=== PATIENT | female | born 1980 | race Caucasian/White ===

== ENCOUNTER 2021-11-05 08:30 | Outpatient (RCR) | payer OTHER, SELFPAY ==
--- NOTE | 2021-10-16 17:38 | PC.ADMIT ---
Addmission Note: 41 year old women self referred to PHP due to increased depression, increased anxiety and worsening PTSD. Patient has a history of Alcohol abuse, which she denies. Patient was recently treated for alcohol abuse at [facility] from 09/26/2021 to 10/09/2021. Patient has a distance history of substance abuse with Marajuana and Ectasy which she reports she used each only once around the ages of 16 and 17. Per patient recent trigger to her PTSD is the anniversary of the of her father by suicide. Patient reports trouble going to sleep and staying asleep. She reports medications for sleep help some. All medications verified with patient and pharmacy. Patient started today on Risperdone twice daily. Medication teaching done with patient including medication, dose, time, side effects with good understanding. Safety Plan emailed to patient with her permission. Patient denies SI and HI. Patient reports she feels safe and was active in groups today. Patient denies any Allergies.
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
--- NOTE | 2021-10-19 14:56 | PC.NURSE ---
Case opened in treatment team
--- NOTE | 2021-10-20 14:48 | P.PNPSP_ITS ---
Subjective Subjective Date of Service: 10/20/21 Reason For Visit: Depression, Anxiety, PTSD, Alcohol Use D/o Guardianship: No Medical Problems Affecting Mental Status: No Interim History: Sasha reports feeling slightly less anxious since starting program. Reports ?I am not as emotional, I feel little improvement ?. Continues with dysphoric mood, although reports some improvement. Taking Vistaril in the morning and in evening with positive affect. Taking risperidone 0.5 in the morning and evening, reports no side effects. Continuing with all other medications as prescribed. she is finding the group format of PHP helpful. Medication Compliance: Yes Side effects from medications: No Attending Groups: Yes Review of Systems Acute medical concerns: No Medical Review of Systems: unchanged Review of Systems Review of Systems Yes all other systems are reviewed and are negative Constitutional: Reports as per HPI and Reports no additional constitutional complaints Mental Status Exam Mental Status Exam Narrative: Well-developed, well-nourished female, in NAD. No evidence of any type alcohol intoxication or withdrawals noted. No involuntary movements noted, motor activity calm, posture within normal limits. Ambulation not observed. Client appropriately groomed and dressed. No SI, HI, AH, VH. No safety concern at this time. Patient Appearance: Well Grooomed and Appropriate Patient Orientation: Person, Place, Time and Situation Level of Consciousness: Awake, Appropriate and Alert Patient Behavior: Appropriate, Cooperative and Good Eye Contact Mood Description: Calm, Appropriate and Depressed Affect Description: Appropriate, Depressed and Anxious Patient Cognition Impaired: No Ability to Follow Directions: Excellent Speech Pattern: Clear, Appropriate, Spontaneous Speech and Coherent Memory Description: Intact Hallucinations: None Delusions: Not Present Thought Process: Intact, Goal Oriented and Linear Thought Content: positive for Intact and positive for Obsessional Thoughts (Reports intrusive thoughts at times, flashbacks related to PTSD.) Depressive Symptoms: Increased Anxiety, Loss of Int. in Activity, Feelings of G uilt and Unhappiness Judgement: Fair Assessment & Plan Assessment & Plan (1) JOANN (generalized anxiety disorder): Status: Acute Code(s): F41.1 - Generalized anxiety disorder Assessment and Plan: Client reports level of anxiety starting to improve. States that she does not feel as emotional, and feels that her level of anxiety is going down. Utilizing p.r.n. hydroxyzine as prescribed for anxiety symptoms, with positive affect. Is also finding group therapy helpful, listening to other people's perspectives and how they are dealing with similar problems. (2) MDD (major depressive disorder), recurrent severe, without psychosis: Status: Acute Code(s): F33.2 - Major depressive disorder, recurrent severe without psychotic features Assessment and Plan: Client continues with symptoms of depression, although she feels that they are starting to subside slowly. Continues with antidepressants as prescribed. Risperidone 0.5 b.i.d. has been added, client has been taking it as prescribed. She reports that she has not yet noticed an improvement as she has only been taking it for a few days at this point. She plans to continue utilizing it. Does not express any suicidal ideation at this time, no safety concern at this time. (3) Alcohol use disorder, moderate, dependence: Status: Acute Code(s): F10.20 - Alcohol dependence, uncomplicated Assessment and Plan: Client was more receptive to discuss alcohol use during this encounter. She reports that she went to a meeting of alcoholics anonymous last evening. She states that it was a speaker reading with approximately 30 people. She states that she found it very and powering. She plans to continue going to meetings. Phone number was given to [place] [facility]. Confidential 12 step recovery meetings for healthcare professionals was discussed, and client may consider these in the future. She continues to abstain from alcohol. (4) PTSD (post-traumatic stress disorder): Status: Acute Code(s): F43.10 - Post-traumatic stress disorder, unspecified Assessment and Plan: Client reports no notable improvement in PTSD symptoms of intrusive thoughts and flashbacks since starting Risperdal. She will continue to take as prescribed, as it has only been 4 days. Assessment and Plan: 1. Continue with current medication regimen as prescribed. No refills needed at this time. 2. Follow-up as per protocol. Patient educated on: diagnosis, medication risk/benefits, substance abuse and therapeutic strategies Informed Consent: understands Reason for contiued partial hosp. stay Substantial Risk for: harm to self, inability to function, rapid decompensation and med/psych decompensation Certification I certify that partial hospital treatment is medically necessary due to the symptoms and problems resulting from the patient's mental illness and the failure to treat the patient at the partial hospital level of care would likely result in the patient requiring inpatient psychiatric care which could not be prevented at a less intensive level of care. I spent minutes with the patient and/or on the patient floor today, greater than?50% of which was spent counseling/coordinating care. Discharge Plan Discharge Attending provider: Rajiv Adame Primary Care Provider: Declan Rodriguez Medications: New risperidone [Risperdal] 0.5 mg tablet 0.5 mg PO BID 7 Days Qty: 14 RF: 0 folic acid 1 mg tablet 1 mg PO DAILY Qty: 30 RF: 0 thiamine HCl (vitamin B1) [Vitamin B-1] 100 mg tablet 100 mg PO DAILY Qty: 30 RF: 0 hydroxyzine HCl 50 mg tablet 50 mg PO QID PRN (Reason: anxiety) Qty: 56 RF: 0 No Action mirtazapine 15 mg tablet 15 mg PO BEDTIME RF: 0 bupropion HCl 300 mg tablet extended release 24 hr 300 mg PO DAILY RF: 0 melatonin 5 mg Tablet 5 mg PO BEDTIME PRN (Reason: Insomnia) RF: 0 Referrals: Declan Rodriguez MD [Primary Care Provider] - 1 Week Telehealth Telehealth Location of provider rendering services: practice address Location of patient: address on file Patient Identification confirmed using: Name, : Yes Telehealth method: video Patient verbally consented to treatment: Yes Patient verbally consented to billing insurance company: Yes Patient informed of any privacy concerns related to visit: Yes Time spent with patient (mins): 15
--- NOTE | 2021-10-29 14:56 | HO.PHPPROGNO ---
Subjective Subjective Date of Service: 10/29/21 Reason For Visit: Depression, Anxiety, PTSD, Alcohol Use D/o Guardianship: No Medical Problems Affecting Mental Status: No Interim History: Sasha reports she is stable, smooth sailing . Denies any thoughts of SI, or harm to others. No safety concern. Reports current medication regimen is working well, wishes to stay with current meds and current doses at this time. States she wishes to return to work, but thinks a set schedule would help her in managing her anxiety and depression. Medication Compliance: Yes Side effects from medications: No Attending Groups: Yes Review of Systems Acute medical concerns: No Medical Review of Systems: unchanged Review of Systems Review of Systems Yes all other systems are reviewed and are negative Constitutional: Reports no additional constitutional complaints Mental Status Exam Mental Status Exam Narrative: Well-developed, well-nourished female, in NAD. No involuntary movements noted, motor activity calm, posture within normal limits. Ambulation not observed. Patient Appearance: Well Grooomed and Appropriate Patient Orientation: Person, Place, Time and Situation Level of Consciousness: Awake, Appropriate and Alert Patient Behavior: Appropriate, Cooperative and Good Eye Contact Mood Description: Calm and Appropriate Affect Description: Appropriate and Cheerful (superficially bright.) Patient Cognition Impaired: No Ability to Follow Directions: Excellent Speech Pattern: Clear, Appropriate, Spontaneous Speech and Coherent Memory Description: Intact Hallucinations: None Delusions: Not Present Thought Process: Intact, Goal Oriented and Linear Thought Content: positive for Intact Depressive Symptoms: Increased Anxiety, Loss of Int. in Activity and Feelings of Guilt Judgement: Fair Assessment & Plan Assessment & Plan (1) MDD (major depressive disorder), recurrent severe, without psychosis: Status: Acute Code(s): F33.2 - Major depressive disorder, recurrent severe without psychotic features Assessment and Plan: Client describes her mood as stable, smooth sailing . States that she does not feel ?to depressed, or to anxious ?. She states that she feels bad when she hears all the other clients as she cannot relate to them, as she is feeling well. She states that the medications are working well. States that she feels ready to return to work, although she believes a set schedule would be appropriate in order to help her manage symptoms of depression and anxiety. No thoughts of harm to self or others, no safety concern at this time. (2) JOANN (generalized anxiety disorder): Status: Acute Code(s): F41.1 - Generalized anxiety disorder Assessment and Plan: Client reports that she is not feeling ?to anxious ?. She states that she is utilizing hydroxyzine with positive affect. She states that she is taking 50 mg in the morning and 100 mg at night. She states that she had made this medication change by herself, as she finds doing this is working better for her than having it 4 times a day p.r.n. at 50 mg. (3) PTSD (post-traumatic stress disorder): Status: Acute Code(s): F43.10 - Post-traumatic stress disorder, unspecified Assessment and Plan: Client continues with risperidone 0.5 b.i.d., in order to help manage PTSD symptoms of intrusive thoughts as well as an adjunct to her antidepressant. States that she has not really felt any symptoms of PTSD lately, as ?they only flare up when I feel offended ?. She states that during those times, she takes a step back and then shuts down. She reports she has not really been doing that while she is in this program. No nightmares, flashbacks, hypervigilance reported. (4) Alcohol use disorder, moderate, dependence: Status: Acute Code(s): F10.20 - Alcohol dependence, uncomplicated Assessment and Plan: Client reports that she does not feel she has an alcohol use disorder at this time. She states she has not been drinking while in the program. She states that a friend that was her roommate while she was in rehab has relapsed, and that she feels sorry for the person. She states that she is not finding the need to drink, and that she was only drinking previously due to a crisis situation. Assessment and Plan: 1. Continue current medication regimen as prescribed. 2. Thirty day refill for risperidone 0.5 b.i.d. sent. Refill for melatonin 5 mg at bedtime, 30 day supply sent. 3. Follow-up as per protocol. Patient educated on: diagnosis, medication risk/benefits, substance abuse and therapeutic strategies Informed Consent: further education needed Reason for contiued partial hosp. stay Substantial Risk for: inability to function and med/psych decompensation Certification I certify that partial hospital treatment is medically necessary due to the symptoms and problems resulting from the patient's mental illness and the failure to treat the patient at the partial hospital level of care would likely result in the patient requiring inpatient psychiatric care which could not be prevented at a less intensive level of care. I spent minutes with the patient and/or on the patient floor today, greater than?50% of which was spent counseling/coordinating care. Discharge Plan Discharge Attending provider: Rajiv Adame Primary Care Provider: Declan Rodriguez Medications: New folic acid 1 mg tablet 1 mg PO DAILY Qty: 30 RF: 0 thiamine HCl (vitamin B1) [Vitamin B-1] 100 mg tablet 100 mg PO DAILY Qty: 30 RF: 0 hydroxyzine HCl 50 mg tablet 50 mg PO QID PRN (Reason: anxiety) Qty: 56 RF: 0 risperidone [Risperdal] 0.5 mg tablet 0.5 mg PO BID 30 Days Qty: 60 RF: 0 melatonin 5 mg capsule 5 mg PO .daily at bedtime PRN (Reason: sleep) 30 Days Qty: 30 RF: 0 Discontinued melatonin 5 mg Tablet 5 mg PO BEDTIME PRN (Reason: Insomnia) RF: 0 No Action mirtazapine 15 mg tablet 15 mg PO BEDTIME RF: 0 bupropion HCl 300 mg tablet extended release 24 hr 300 mg PO DAILY RF: 0 Referrals: Declan Rodriguez MD [Primary Care Provider] - 1 Week Telehealth Telehealth Location of provider rendering services: practice address Location of patient: address on file Patient Identification confirmed using: Name, : Yes Telehealth method: video Patient verbally consented to treatment: Yes Patient verbally consented to billing insurance company: Yes Patient informed of any privacy concerns related to visit: Yes Time spent with patient (mins): 20
--- NOTE | 2021-11-02 15:50 | P.PNPSP_ITS ---
Subjective Subjective Date of Service: 11/02/21 Reason For Visit: Depression, Anxiety, PTSD, Alcohol Use D/o Guardianship: No Medical Problems Affecting Mental Status: No Interim History: Client reports that she is ?doing well ?today. She reports that she feels her mood is much more stable now than when she entered program. States her last day is expected to be either Tuesday or of this week. Denies any thoughts of harm to self or others. Reports that she feels stable for discharge at this time. Medication Compliance: Yes Side effects from medications: No Attending Groups: Yes Review of Systems Acute medical concerns: No Medical Review of Systems: unchanged Mental Status Exam Mental Status Exam Narrative: Well-developed, well-nourished female, in NAD. No involuntary movem ents noted, motor activity calm, posture within normal limits. Ambulation not observed. Patient Appearance: Well Grooomed and Appropriate Patient Orientation: Person, Place, Time and Situation Level of Consciousness: Awake, Appropriate and Alert Patient Behavior: Appropriate, Cooperative and Good Eye Contact Mood Description: Calm, Appropriate and Relaxed Affect Description: Calm and Appropriate Patient Cognition Impaired: No Ability to Follow Directions: Excellent Speech Pattern: Clear, Appropriate, Spontaneous Speech and Coherent Memory Description: Intact Hallucinations: None Delusions: Not Present Thought Process: Intact, Goal Oriented and Linear Thought Content: positive for Intact, positive for Goal Oriented, positive for Linear and positive for Logical Depressive Symptoms: Increased Anxiety, Loss of Int. in Activity, Isolating- Friends/Family and Feelings of Guilt Judgement: Good Assessment & Plan Assessment & Plan (1) MDD (major depressive disorder), recurrent severe, without psychosis: Status: Acute Code(s): F33.2 - Major depressive disorder, recurrent severe without psychotic features Assessment and Plan: Client reports feeling much improved since beginning PHP. Reports decrease in depressive symptoms, denies any type of thoughts of harm to self or others, no safety concern at this time. She reports she feels stable, ready for discharge. States her last day is expected to be either Tuesday or of this week. Discussed returning to work, she states that she is concerned about the work load, as well as her level of anxiety and depressive symptoms, as she does not w ant to feel overwhelmed. She plans to discuss this further with her primary care physician next week. She states she does not need any refills of medications at this time. (2) PTSD (post-traumatic stress disorder): Status: Acute Code(s): F43.10 - Post-traumatic stress disorder, unspecified (3) JOANN (generalized anxiety disorder): Status: Acute Code(s): F41.1 - Generalized anxiety disorder Assessment and Plan: 1. Patient appears stable for discharge, as is expected this week. 2. Patient to follow-up with outpatient providers going forward. Patient educated on: diagnosis, medication risk/benefits, substance abuse and therapeutic strategies Informed Consent: understands Reason for contiued partial hosp. stay Substantial Risk for: stable for discharge Certification I certify that partial hospital treatment is medically necessary due to the symptoms and problems resulting from the patient's mental illness and the failure to treat the patient at the partial hospital level of care would likely result in the patient requiring inpatient psychiatric care which could not be prevented at a less intensive level of care. I spent minutes with the patient and/or on the patient floor today, greater than?50% of which was spent counseling/coordinating care. Discharge Plan Discharge Attending provider: Rajiv Adame Primary Care Provider: Declan Rodriguez Medications: New folic acid 1 mg tablet 1 mg PO DAILY Qty: 30 RF: 0 thiamine HCl (vitamin B1) [Vitamin B-1] 100 mg tablet 100 mg PO DAILY Qty: 30 RF: 0 hydroxyzine HCl 50 mg tablet 50 mg PO QID PRN (Reason: anxiety) Qty: 56 RF: 0 risperidone [Risperdal] 0.5 mg tablet 0.5 mg PO BID 30 Days Qty: 60 RF: 0 melatonin 5 mg capsule 5 mg PO .daily at bedtime PRN (Reason: sleep) 30 Days Qty: 30 RF: 0 Discontinued melatonin 5 mg Tablet 5 mg PO BEDTIME PRN (Reason: Insomnia) RF: 0 No Action mirtazapine 15 mg tablet 15 mg PO BEDTIME RF: 0 bupropion HCl 300 mg tablet extended release 24 hr 300 mg PO DAILY RF: 0 Referrals: Declan Rodriguez MD [Primary Care Provider] - 1 Week Stand Alone Forms: Patient Portal Discharge page Telehealth Telehealth Location of provider rendering services: practice address Location of patient: address on file Patient Identification confirmed using: Name, : Yes Telehealth method: video Patient verbally consented to treatment: Yes Patient verbally consented to billing insurance company: Yes Patient informed of any privacy concerns related to visit: Yes Time spent with patient (mins): 15
== END 2021-11-06 07:09 | disposition home or self-care (01) ==
LOC: HO.PHPA 08:30
PROVIDERS: PCP Internal Medicine; Visit Provider Psychiatry & Neurology Psychiatry
DX: F33.2 Major depressive disorder, recurrent severe without psychotic features (principal); F43.10 Post-traumatic stress disorder, unspecified; F41.1 Generalized anxiety disorder; F10.20 Alcohol dependence, uncomplicated
CPT/HCPCS: 90791; 90853

== ENCOUNTER 2022-06-01 18:24 | Inpatient (IN) | payer OTHER, MEDICAID, SELFPAY ==
[2022-06-01 18:40] VITALS: BP 123/78; PULSE 102; RESP 18; TEMP 36.4; O2SAT 98
[2022-06-01 19:40] VITALS: BMI 23.2
[2022-06-01] MEDS: Nicotine 14 MG PATCH.TD24 TRANSDERMA (22:26)
[2022-06-01] MEDS: Melatonin 3 MG TABLET 9 MG PO (22:27)
[2022-06-01] MEDS: Nicotine Polacrilex 2 MG GUM BUCCAL (22:27)
[2022-06-01] MEDS: hydrOXYzine HCL 50 MG TABLET PO (22:27)
--- NOTE | 2022-06-02 00:18 | PC.NURSE ---
Tonya asked this nurse not to wake her during the night to do the CIWA exam. Score at 1999 was a 1.
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
[2022-06-02 06:00] VITALS: BP 111/77; PULSE 95; RESP 18; TEMP 36.3; O2SAT 100
[2022-06-02] MEDS: Pyridoxine HCl (Vitamin B6) 50 MG TABLET 25 MG PO (08:43)
[2022-06-02] MEDS: Thiamine HCL 100 MG TABLET 50 MG PO (08:44)
[2022-06-02] MEDS: buPROPion HCl XL 150 MG TAB.ER.24H PO (08:44)
[2022-06-02] MEDS: Folic Acid 1 MG TABLET PO (08:44)
[2022-06-02] MEDS: Nicotine 14 MG PATCH.TD24 TRANSDERMA (08:45)
[2022-06-02] MEDS: hydrOXYzine HCL 50 MG TABLET PO ×2 (08:52→22:16)
[2022-06-02 09:21] LABS: Estimated Average Glucose 80 mg/dL; Hemoglobin A1c % 4.4 %
[2022-06-02 10:24] LABS: Cholesterol 180 mg/dL; HDL Cholesterol 86 mg/dL; LDL Cholesterol Calculated 79 mg/dl; Magnesium 1.9 mg/dL (1.6-2.6); Triglycerides 76 mg/dL
[2022-06-02 10:27] LABS: Free T4 (Free Thyroxine) 1.03 ng/dL (0.71-1.85); Thyroid Stimulating Hormone 2.58 uIU/mL (0.32-4.0)
[2022-06-02 11:02] LABS: Folate 18.2 ng/mL (> or = 4.0); Vitamin B12 376 pg/mL (200-900)
[2022-06-02 12:04] VITALS: BP 116/77; PULSE 104; RESP 18; TEMP 36.6; O2SAT 99
[2022-06-02] MEDS: Sertraline HCL 50 MG TABLET PO (16:48)
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
[2022-06-02 20:15] VITALS: BP 120/77; PULSE 95; RESP 16; TEMP 36.6; O2SAT 97
[2022-06-02] MEDS: Melatonin 3 MG TABLET 6 MG PO (22:16)
[2022-06-02] MEDS: Docusate Sodium 100 MG CAPSULE PO (22:16)
[2022-06-02] MEDS: Mirtazapine 7.5 MG TABLET PO (22:17)
--- NOTE | 2022-06-03 09:36 | P.CONHOSP_ITS ---
History of Present Illness Data of Consult Service Date: 06/03/22 Primary Care Provider: Unknown Physician HPI Reason for consult: Routine medical H&P This is a 42 yo F who is admitted to the inpatient psych unit. Medical consult requested for routine medical H&P. Pt is seen and examined in her room. She denies any physical complaints at this time. PMH Leukopenia PSH Laproscopic surgery Clavicular surgery FH Leukemia in her son when he was 4 SH 4-5 cigs daily; drinks alcohol few times a month 2-3 drinks; no alc PMFSH Social History Household Members: Children Housing: House Do you presently have visiting nurse or other home services: No Patient Tobacco Use Status: Current everyday Tobacco user Tobacco use type: Cigarette Cigarette Packs Per Day: 1 Cigarettes Per Day: 20.0 Smoked in Last 30 Days: Yes Patient Interested in Nicotine Replacement: Yes Patient Given Instructions on How to Stop Smoking: Yes Date Education Initiated: 06/02/22 Second Hand Smoke Exposure: Yes Use of substances other than those prescribed or required for medical reasons: Yes Substance Use Type: Marijuana Substance Use Frequency: Occasionally Last Used Substance: Unknown Currently Displaying Signs/Symptoms of Drug Intoxication Withdrawal: No Any prior treatment program specific to substance use: Yes Have you been hit, kicked, punched, or otherwise hurt by someone within the past year? If so, by whom?: No Do you feel safe in your current relationship?: No Current Relationship Is there a partner from a previous relationship who is making you feel unsafe now?: No Are you made to feel afraid or neglected: No Spiritual Healthcare Practices: [facility] Practices: [facility] Cultural Healthcare Practices: none reported Advance Directives: No Advance Directives Information Provided: No Advance Directives on File: No Do you have thoughts of harming others: None Do you have a plan to hurt others: No Plan Recently lost weight without trying: No Eating poorly because of decreased appetite: No Nutrition Risks: No Nutritional Risk Patient : No : No Poor oral hygiene: No service: No Sexual orientation: Straight/Heterosexual Meds Allergies Allergy/AdvReac Type Severity Reaction Status Date / Time Unable to Assess Allergy Verified 10/16/21 08:53 Active Medications: Current Medications Acetaminophen (Acetaminophen 325 Mg Tablet) 650 mg PO Q6H PRN PRN Reason: Headache/Pain Mild Scale (1-3) Al Hydroxide/Mg Hydroxide (Magnesium Hydrox/Alum Hydrox 30 Ml Oral.Susp) 30 ml PO Q6H PRN PRN Reason: Heartburn/Nausea Bupropion HCl (Bupropion Hcl Xl 300 Mg Tab.Er.24h) 300 mg PO DAILY [facility] Clonidine HCl (Clonidine Hcl 0.1 Mg Tablet) 0.1 mg PO BEDTIME PRN; Protocol PRN Reason: insomnia Docusate Sodium (Docusate Sodium 100 Mg Capsule) 100 mg PO BEDTIME PRN PRN Reason: constipation Last Admin: 06/02/22 22:16 Dose: 100 mg Folic Acid (Folic Acid 1 Mg Tablet) 1 mg PO DAILY [facility] Last Admin: 06/02/22 08:44 Dose: 1 mg Hydroxyzine HCl (Hydroxyzine Hcl 50 Mg Tablet) 50 mg PO Q6H PRN PRN Reason: Anxiety Last Admin: 06/02/22 22:16 Dose: 50 mg Magnesium Hydroxide (Milk Of Magnesia 30 Ml Oral.Susp) 30 ml PO DAILY PRN PRN Reason: Constipation Melatonin (Melatonin 3 Mg Tablet) 6 mg PO BEDTIME [facility] Last Admin: 06/02/22 22:16 Dose: 6 mg Mirtazapine (Mirtazapine 7.5 Mg Tablet) 7.5 mg PO BEDTIME [facility] Last Admin: 06/02/22 22:17 Dose: 7.5 mg Nicotine (Nicotine 14 Mg Patch.Td24) 14 mg TRANSDERMA DAILY [facility] Last Admin: 06/02/22 08:45 Dose: 14 mg Nicotine Polacrilex (Nicotine Polacrilex 2 Mg Gum) 2 mg BUCCAL Q2H PRN PRN Reason: nicotine withdrawal Last Admin: 06/01/22 22:27 Dose: 2 mg Pyridoxine HCl (Pyridoxine Hcl (Vitamin B6) 50 Mg Tablet) 25 mg PO DAILY [facility] Last Admin: 06/02/22 08:43 Dose: 25 mg Sertraline HCl (Sertraline Hcl 50 Mg Tablet) 50 mg PO DAILY [facility] Last Admin: 06/02/22 16:48 Dose: 50 mg Thiamine HCl (Thiamine Hcl 100 Mg Tablet) 50 mg PO DAILY [facility] Last Admin: 06/02/22 08:44 Dose: 50 mg Trazodone HCl (Trazodone Hcl 50 Mg Tablet) 50 mg PO BEDTIME PRN PRN Reason: Insomnia Home Medications Medication Instructions Recorded Confirmed Last Taken Type bupropion HCl 150 mg 24 hr tablet, 150 mg PO QAM 06/01/22 06/01/22 06/01/22 History extended release hydroxyzine pamoate 50 mg capsule 50 mg PO QID PRN Anxiety 06/01/22 06/01/22 Unknown History mirtazapine 7.5 mg tablet 7.5 mg PO BEDTIME 06/01/22 06/01/22 05/30/22 History Physical Exam Vital Signs and Narrative: Vital Signs: Last Vital Signs Temp 98 F 06/02/22 20:15 Pulse 95 06/02/22 20:15 Resp 16 06/02/22 20:15 BP 120/77 06/02/22 20:15 Pulse Ox 97 06/02/22 20:15 O2 Del Method 06/02/22 20:15 BMI result Body Mass Index 23.2 Const: Other: General - no acute distress, appears comfortable Cardiovascular - regular rate and rhythm, S1-S2 Lungs - normal respiratory effort, clear to auscultation bilaterally, no wheezing Abdomen - soft, nontender, no rebound or guarding Extremities - no edema bilaterally Neuro - awake and alert, no focal deficits; cn 2-12 intact b/l Results Labs Labs: Laboratory Results - last 24 hr 06/02/22 06/02/22 08:50 08:50 Magnesium 1.9 Triglycerides 76 Cholesterol 180 LDL Cholesterol, Calc 79 HDL Cholesterol 86 Vitamin B12 376 Folate 18.2 TSH 2.58 Free T4 1.03 Assessment and Plan (1) Routine medical exam: Status: Acute Plan 42 yo F who is admitted to the inpatient psych unit. Medical consult requested for routine medical H&P. Pt is medically stable. Will sign off. Please reconsult PRN.
[2022-06-03 09:55] VITALS: BP 119/68; PULSE 96; RESP 16; TEMP 36.5; O2SAT 99
[2022-06-03] MEDS: Nicotine 14 MG PATCH.TD24 TRANSDERMA (09:57)
[2022-06-03] MEDS: Thiamine HCL 100 MG TABLET 50 MG PO (09:58)
[2022-06-03] MEDS: buPROPion HCl XL 300 MG TAB.ER.24H PO (09:58)
[2022-06-03] MEDS: Folic Acid 1 MG TABLET PO (09:58)
[2022-06-03] MEDS: Sertraline HCL 50 MG TABLET PO (09:58)
[2022-06-03] MEDS: Pyridoxine HCl (Vitamin B6) 50 MG TABLET 25 MG PO (09:59)
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
[2022-06-03] MEDS: hydrOXYzine HCL 50 MG TABLET PO (15:42)
[2022-06-03 19:44] VITALS: BP 121/76; PULSE 104; RESP 16; TEMP 36.6; O2SAT 97
[2022-06-03] MEDS: Docusate Sodium 100 MG CAPSULE PO (19:49)
[2022-06-03] MEDS: Mirtazapine 7.5 MG TABLET PO (19:49)
[2022-06-03] MEDS: Melatonin 3 MG TABLET 6 MG PO (19:50)
[2022-06-03] MEDS: cloNIDine HCL 0.1 MG TABLET PO (19:50)
[2022-06-03] MEDS: traZODone HCL 50 MG TABLET PO (19:51)
[2022-06-04 08:40] VITALS: BP 106/68; PULSE 100; RESP 16; TEMP 36.6; O2SAT 100
[2022-06-04] MEDS: Pyridoxine HCl (Vitamin B6) 50 MG TABLET 25 MG PO (08:40)
[2022-06-04] MEDS: Nicotine 14 MG PATCH.TD24 TRANSDERMA (08:40)
[2022-06-04] MEDS: Sertraline HCL 50 MG TABLET PO (08:41)
[2022-06-04] MEDS: buPROPion HCl XL 300 MG TAB.ER.24H PO (08:41)
[2022-06-04] MEDS: Folic Acid 1 MG TABLET PO (08:42)
[2022-06-04] MEDS: Thiamine HCL 100 MG TABLET 50 MG PO (08:42)
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
== END 2022-06-04 11:39 | disposition home or self-care (01) | DRG 751 ==
PROVIDERS: Registered Nurse; Admitting Provider Psychiatry & Neurology Psychiatry; Visit Provider Psychiatry & Neurology Psychiatry
DX: F33.2 Major depressive disorder, recurrent severe without psychotic features (principal); R45.851 Suicidal ideations; F17.210 Nicotine dependence, cigarettes, uncomplicated; F43.10 Post-traumatic stress disorder, unspecified; F10.129 Alcohol abuse with intoxication, unspecified; Z62.810 Personal history of physical and sexual abuse in childhood; Z71.6 Tobacco abuse counseling; Z79.899 Other long term (current) drug therapy
CPT/HCPCS: 36415; 80061; 82607; 82746; 83036; 83735; 84439; 84443

== ENCOUNTER 2024-03-04 10:41 | Emergency (ER) | payer OTHER, SELFPAY ==
--- NOTE | 2024-03-04 10:52 | ED_ITS ---
HPI - Psych General Chief Complaint: Psychiatric Symptoms Stated Complaint: SI NO PLAN,D/T STRESS @ WORK,CALM/COOP PER EMS Time Seen by Provider: 03/04/24 10:52 Source: patient, EMS and RN notes reviewed Mode of arrival: EMS Limitations: no limitations History of Present Illness HPI Narrative: Patient is a 43-year-old female with history of MDD, PTSD, GERD, alcohol use disorder presenting to the emergency department with complaint increased stress and anxiety, mood swings. She states that she recently started seeing a new therapist, has seen her a few times and she likes this therapist. States that she does not currently have a prescriber and that is what brought her to the emergency department today. She is currently denying suicidal ideation, homicidal ideation, auditory or visual hallucination. States that she occasionally has thoughts of suicide but does not wish to go through with this plan due to the burden it would cause her loved ones. She denies any recent medication changes. She reports history of suicide attempt approximately 2 years ago. She also reports that her father by suicide. She reports that Lexapro has worked well for her in the past but she discontinued this medication due to side effects. MD complaint: feels depressed and anxiety Onset (ago): week(s) Duration: getting worse History of same: Yes Context: significant life stressor Associated psychiatric symptoms: depression Associated symptoms: denies other symptoms Treatments prior to arrival: none If self harm: admits thoughts of self harm Related Data Home Medications ?Medication ?Instructions ?Recorded ?Confirmed escitalopram oxalate 20 mg tablet 20 mg PO DAILY 03/04/24 03/04/24 (Lexapro) Previous Rx's ?Medication ?Instructions ?Recorded cefuroxime axetil 500 mg tablet 500 mg PO BID #14 tabs 03/04/24 Allergies Allergy/AdvReac Type Severity Reaction Status Date / Time No Known Allergies Allergy Verified 03/04/24 11:04 Review of Systems 2 Review of Systems: As per HPI. Yes all other systems are reviewed and are negative Constitutional: Constitutional: Reports as per HPI [facility] Past Medical History Medical History (Updated 03/04/24 @ 14:05 by Romy Patrick NP) Routine medical exam Social History Social History Household Members: Children Housing: House Do you presently have visiting nurse or other home services: No Patient Tobacco Use Status: Current everyday Tobacco user Tobacco use type: Cigarette Cigarette Packs Per Day: 1 Cigarettes Per Day: 20.0 Smoked in Last 30 Days: No Second Hand Smoke Exposure: Yes Use of substances other than those prescribed or required for medical reasons: Yes Substance Use Type: Marijuana Advance Directives: No Advance Directives Information Provided: No Advance Directives on File: No Patient : No service: No Sexual orientation: Straight/Heterosexual Physical Exam 2 Vital Signs: Vital Signs: Last Vital Signs Temp 97.2 F 03/04/24 11:02 Pulse 90 03/04/24 11:02 Resp 16 03/04/24 12:07 BP 115/80 03/04/24 11:02 Pulse Ox 100 03/04/24 11:02 O2 Del Method Room Air 03/04/24 11:02 BMI result Body Mass Index 18.5 Const: General: cooperative, healthy appearing and no acute distress O rientation/consciousness: oriented to person, oriented to place, oriented to time and patient oriented x3 Limitations: no limitations HEENT: Head: Yes normocephalic and Yes atraumatic Ears: external ears normal General nose exam: Normal external nose present Face and sinus: Yes face symmetric Mouth: oropharynx normal and moist mucous membranes Throat: Yes uvula midline Eyes: Pupils: Equal, round and reactive pupils present Neck: Neck: Yes normal visual inspection and Yes supple Resp: Effort & Inspection: normal respiratory effort and able to speak in complete sentences Auscultation: clear to auscultation bilaterally Cardio: Rate: regular rate Rhythm: regular rhythm Heart sounds: S1 normal heart sound present and S2 normal heart sound present GI: Palpation (GI): Soft to palpation and nontender Auscultation: n ormoactive bowel sounds : General: Yes no CVA tenderness Back/Spine/Pelvis: Back: no CVA tenderness Skin: General skin exam: elasticity normal and turgor normal Neuro: General: oriented to person, oriented to place, oriented to time, patient oriented x3, moves all extremities, no focal motor deficits and CN's II- XI intact bilaterally Cranial nerves: Yes Equal, round and reactive pupils present Cognition (Neuro): normal cognition Extrem: General: Yes full ROM, Yes no pedal edema and Yes no calf tenderness Psych: Appearance: well kempt Mental Status: mental status grossly normal Speech and movement: Normal speech and movement present Affect: normal affect Attitude: cooperative Thought process: Normal thought process present Thought content: suicidality, no homicidality, no hallucinations and Depressive thoughts present Insight: Good insight present (Psych) J udgement: Good judgement present (Psych) Medical Decision Making Medical Decision Making [facility] Narrative: Patient is a 43-year-old female with history of MDD, PTSD, GERD, alcohol use disorder presenting to the emergency department with complaint increased stress and anxiety, mood swings. On exam patient is awake, A+Ox3, VS WNL, afebrile, normal neurological exam without focal deficits, physical exam findings as above. Given reported symptoms and physical exam findings, initial differential includes anxiety, depression. Plan: medical clearance then CARE team evaluation Labs grossly within normal limits. Urinalysis notable for 2+ leukocytes, positive nitrites, 4+ bacteria. Patient now endorsing some dysuria and incontinence, will treat for UTI with cefuroxime. Urine drug screen positive for THC only. Will medically clear patient for CARE team evaluation and place on physician observation. Case discussed with CARE team who feels patient is stable for discharge home, will work on assisting patient with walk-in partial placement at [facility]. Patient has some 10mg Lexapro at home, will restart this medication as it has worked well for her in the past. She also plans to apply for FMLA. I am in agreement with this plan and also feel patient is stable for discharge home. Will send prescription for cefuroxime to pharmacy. Differential Diagnosis Differential Diagnoses: The differential diagnosis associated with the presentation includes As per [facility] Admission/Observation Consideration of admission/observation: Escalation of care including admission/observation considered Consult Healthcare Provider Management of the patient was discussed with: Behavioral Health Provider Lab Data [facility] Lab Attestation statement: I reviewed the patient's lab results. As per [facility]. 03/04/24 11:10 03/04/24 11:10 Labs: Lab Results 03/04/24 03/04/24 Range/Units 11:04 11:10 WBC 4.1 L (4.8-10.8) X10*3/uL RBC 3.76 L (4.20-5.50) X10*6/uL Hgb 11.8 L (12.0-16.0) g/dl Hct 35.5 L (37.0-47.0) % MCV 94.4 (80.0-98.0) fL MCH 31.4 (27.0-33.0) pg MCHC 33.2 (31.0-35.0) g/dl RDW 12.1 (11.0-16.0) % Plt Count 211 (160-400) X10*3/uL MPV 8.3 L (9.4-12.3) fL Immature Gran % (Auto) 0.2 (0.0-0.4) % Neut % (Auto) 60.6 (45-73) % Lymph % (Auto) 33.3 (20-40) % [place] % (Auto) 4.9 (2-11) % Eos % (Auto) 0.5 (0-4) % Baso % (Auto) 0.5 (0-2) % Lymph # (Auto) 1.4 (1.2-4.9) X10*3/uL [place] # (Auto) 0.2 (0.1-1.2) X10*3/uL Eos # (Auto) 0.0 (0.0-0.4) X10*3/uL Baso # (Auto) 0.0 (0.0-0.2) X10*3/uL Abs Immat Gran (auto) 0.01 (0.00-0.03) X10*3/uL Absolute Neuts (auto) 2.5 (2.0-8.3) x10*3/uL Absolute Nucleated RBC 0.000 (0.0-0.012) X10*3/uL Nucleated RBC % (auto) 0.0 (0.0-0.2) /100WBC Sodium 139 (135-145) mmol/L Potassium 4.7 (3.3-5.1) mmol/L Chloride 108 (96-108) mmol/L Carbon Dioxide 27 (22-29) mmol/L Anion Gap 9 L (12-20) BUN 12 (9-16) mg/dL Creatinine 0.82 (0.5-1.4) mg/dL Estim Creat Clear Calc 73.2 Estimated GFR > 60 Random Glucose 106 (60-115) mg/dL Calcium 9.4 (8.4-10.2) mg/dL Total Bilirubin 0.7 (0.0-1.0) mg/dL AST 19 (5-31) U/L ALT 13 (0-31) U/L Alkaline Phosphatase 55 (39-117) U/L Total Protein 7.0 (6.5-8.0) g/dL Albumin 4.3 (3.5-5.0) g/dL Beta HCG, Quant < 2 mIU/mL Urine Color Yellow Urine Appearance Cloudy Urine pH 5.5 (5.0-9.0) Ur Specific [place] 1.020 (1.005-1.025) Urine Protein Negative (Neg-Trace) mg/dL Urine Glucose (UA) Negative (Negative) mg/dL Urine Ketones Negative (Negative) mg/dL Urine Blood Negative (Negative) Urine Nitrite Positive H (Negative) Ur Leukocyte Esterase Moderate (2+) H (Negative) Urine RBC 0-2 (0-2) /HPF Urine WBC 21-50 H (0-5) /HPF Ur Squamous Epith Cells 11-20 (0-2) /HPF Urine Bacteria 4+ (None Seen) Hyaline Casts 0-2 (0-2) /LPF Urine Opiates Screen Not Detected (Not Detect) Urine Fentanyl Screen Not Detected (Not Detect) Ur Barbiturates Screen Not Detected (Not Detect) Ur Phencyclidine Scrn Not Detected (Not Detect) Ur Amphetamines Screen Not Detected (Not Detect) U Benzodiazepines Scrn Not Detected (Not Detect) Urine Cocaine Screen Not Detected (Not Detect) U Marijuana (THC) Screen POSITIVE H (Not Detect) Ethyl Alcohol < 10 mg/dL COVID-19 ([facility]) Negative (Negative) COVID-19 Clin Com See Note External Record Review External record reviewed: Inpatient record, Office record and Outpatient record Prescription Management I considered prescription management with: Antibiotic Discharge Plan Discharge Clinical Impression: Depression, Anxiety, Urinary tract infection Patient Disposition: Home, Self-Care Instructions: Urinary Tract Infection in Women (DC) Additional Instructions: You have been evaluated in the emergency department today for your urinary symptoms. Your evaluation, including urinalysis, suggests that some of your symptoms are due to a urinary tract infection. Please take your prescribed antibiotics for the full course of medication as directed. Please follow-up with your primary care provider within 2 days. Return to the emergency department if you experience fevers 100.4? F or greater, worsening or uncontrolled pain, vomiting, flank pain, or for any other concerning symptoms. Please follow up with [facility] as recommended by the CARE team. Return to the emergency department if you have thoughts of hurting yourself or anyone else. Prescriptions: New cefuroxime axetil 500 mg tablet 500 mg PO BID Qty: 14 0RF No Action escitalopram oxalate [Lexapro] 20 mg Tablet 20 mg PO DAILY Interventions: [place]-Suicide Risk Severity Scale Last Done: 03/04/24 11:32 Print Language: Yakut
[2024-03-04 11:02] VITALS: BP 115/80; BP 120/70; PULSE 90; PULSE 91; RESP 16; TEMP 36.2; O2SAT 100; O2SAT 99; BMI 18.5
[2024-03-04 11:14] LABS: MANUAL DIFF FLAG NO
[2024-03-04 11:16] LABS: Basophils Percent Auto 0.5 % (0-2); Eosinophils Percent Auto 0.5 % (0-4); Hematocrit 35.5 % (37.0-47.0); Hemoglobin 11.8 g/dl (12.0-16.0); Imm Gran Abs Auto 0.01 X10*3/uL (0.00-0.03); Imm Gran Pct Auto 0.2 % (0.0-0.4); Lymphocytes Absolute Auto 1.4 X10*3/uL (1.2-4.9); Lymphocytes Percent Auto 33.3 % (20-40); Mean Corpuscular HGB Conc 33.2 g/dl (31.0-35.0); Mean Corpuscular Hemoglobin 31.4 pg (27.0-33.0); Mean Corpuscular Volume 94.4 fL (80.0-98.0); Mean Platelet Volume 8.3 fL (9.4-12.3); Monocytes Absolute Auto 0.2 X10*3/uL (0.1-1.2); Monocytes Percent Auto 4.9 % (2-11); Neutrophils Absolute Auto 2.5 x10*3/uL (2.0-8.3); Neutrophils Percent Auto 60.6 % (45-73); Platelet Count 211 X10*3/uL (160-400); Red Blood Count 3.76 X10*6/uL (4.20-5.50); Red Cell Distribution Width 12.1 % (11.0-16.0); White Blood Count 4.1 X10*3/uL (4.8-10.8)
[2024-03-04 11:18] LABS: Appearance Urine Cloudy; Color Urine Yellow; Glucose Urine UA Negative (Negative); Leukocyte Esterase Urine Moderate (2+) (Negative); Nitrite Urine Positive (Negative); PH 5.5 (5.0-9.0); UMIC TRIGGER UACC YES; Urine Blood Negative (Negative); Urine Ketones Negative (Negative); Urine Protein Negative (Neg-Trace)
[2024-03-04 11:20] LABS: Bacteria Urine 4+ (None Seen); Hyaline Casts Urine 0-2 /LPF (0-2); RBC Urine 0-2 /HPF (0-2); UACC Culture Trigger YES; WBC Urine 21-50 /HPF (0-5)
[2024-03-04 11:25] LABS: Amphetamine Screen Urine Not Detected (Not Detect); Barbiturates, Urine Not Detected (Not Detect); Benzodiazepines Screen Urine Not Detected (Not Detect); Cannabinoid Screen Urine POSITIVE (Not Detect); Cocaine Screen Urine Not Detected (Not Detect); Fentanyl, urine Not Detected (Not Detect); Opiate Screen Urine Not Detected (Not Detect); Phencyclidine Screen Urine Not Detected (Not Detect)
[2024-03-04 11:30] LABS: Ethanol < 10 mg/dL
[2024-03-04 11:34] LABS: COVID-19 Test Negative (Negative); IDNOW Serial# 152EDE1D
[2024-03-04 11:53] LABS: Alanine Aminotransferase 13 U/L (0-31); Albumin Level 4.3 g/dL (3.5-5.0); Alkaline Phosphatase 55 U/L (39-117); Anion Gap 9 (12-20); Aspartate Amino Transferase 19 U/L (5-31); Bilirubin Total 0.7 mg/dL (0.0-1.0); Blood Urea Nitrogen 12 mg/dL (9-16); Calcium 9.4 mg/dL (8.4-10.2); Carbon Dioxide 27 mmol/L (22-29); Chloride 108 mmol/L (96-108); Creatinine Clr Calc Pharmacy 73.2; Estimated Glomerular Filt Rate > 60; Glucose Random 106 mg/dL (60-115); HCG Quantitative < 2 mIU/mL; Potassium 4.7 mmol/L (3.3-5.1); Sodium 139 mmol/L (135-145)
[2024-03-04 12:07] VITALS: RESP 16
--- NOTE | 2024-03-04 12:09 | PC.NURSE ---
Patient reports that she last took her Lexapro about 2 weeks ago. She reports that this is the only medication she is currently prescribed
--- NOTE | 2024-03-04 12:10 | PC.NURSE ---
Patient is calm and cooperative, offering no complaints, respirations even and unlabored, no apparent distress. voluntary at this time. Reports no SI/HI just feeling overwhelmed
--- NOTE | 2024-03-04 15:42 | PC.NURSE ---
Patient meeting with CARE team at this time
--- NOTE | 2024-03-04 16:12 | MHC.CARE ---
patient evaluated by the CARE Team, disposition for discharge with safety planning, referral to [facility] and information about other local community resources. ED provider, Romy Patrick NP updated and in agreement with plan.
[2024-03-04 16:18] VITALS: BP 115/80; PULSE 90; RESP 16; TEMP 36.2; O2SAT 100
--- NOTE | 2024-03-05 13:57 | MHC.CARE ---
RAD Team completed a referral to [facility] for this individual. Will follow up tomorrow 03/06/24 to confirm receipt.
== END 2024-03-04 16:21 | disposition home or self-care (01) ==
PROVIDERS: Registered Nurse Emergency; Emergency Provider Student in an Organized Health Care Education/Training Program
DX: F33.9 Major depressive disorder, recurrent, unspecified (principal); F41.9 Anxiety disorder, unspecified; N39.0 Urinary tract infection, site not specified; F43.10 Post-traumatic stress disorder, unspecified; Z91.51 Personal history of suicidal behavior; Z11.52 Encounter for screening for COVID-19
CPT/HCPCS: 36415; 80053; 80307; 81001; 84702; 85025; 87086; 87088; 87186; 87635; 99284; 99285; S9485

== ENCOUNTER 2024-04-17 11:02 | Outpatient (AMB) | payer OTHER, SELFPAY ==
[2024-04-17 11:17] VITALS: BP 78/58; PULSE 76; RESP 16; BMI 18.4
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
== END 2024-04-17 12:03 | disposition home or self-care (01) ==
PROVIDERS: PCP Internal Medicine; Referring Provider Internal Medicine; Visit Provider Psychiatry & Neurology Neurology
DX: R41.89 Other symptoms and signs involving cognitive functions and awareness (principal); R93.0 Abnormal findings on diagnostic imaging of skull and head, not elsewhere classified; G47.00 Insomnia, unspecified; R06.83 Snoring; G47.10 Hypersomnia, unspecified
CPT/HCPCS: 99204

== ENCOUNTER → 2024-04-17 11:02 | Outpatient (BNVA) | payer OTHER, SELFPAY | PROVIDERS: PCP Internal Medicine; Referring Provider Internal Medicine; Visit Provider Psychiatry & Neurology Neurology ==

== ENCOUNTER → 2024-05-22 10:19 | Outpatient (REF) | payer OTHER, SELFPAY | LOC: HO.SL 10:19 | PROVIDERS: PCP Internal Medicine; Visit Provider Psychiatry & Neurology Neurology | DX: G47.00 Insomnia, unspecified (principal); G47.10 Hypersomnia, unspecified; R06.83 Snoring | CPT/HCPCS: 95806 ==